=== PATIENT | male | born 1975 | race Two or more races ===

== ENCOUNTER 2020-04-02 22:42 | Emergency (ER) | payer MEDICARE, OTHER ==
[~2020-04-02] VITALS: Ht 172.7 cm; Wt 72.6 kg
[2020-04-02] MEDS ORDERED: QUET200T PO (22:55)
--- NOTE | 2020-04-02 23:00 | NUR ---
Dr. Rao at bedside for [facility].
[2020-04-02] MEDS ORDERED: SULFAMETH/TRIMETH 800/160 MG TABLET ONE (23:08)
[2020-04-02] MEDS ORDERED: SULFAMETH/TRIMETH 800/160 MG TABLET PO ONE (23:15)
--- NOTE | 2020-04-02 23:19 | NUR ---
Patient given written and verbal discharge instructions. Patient verbalizes understanding of instructions. Patient is ambulatory with steady gait. Refuses offer of [facility] placement. Patient given list of available shelters in surrounding area. Patient provided sandwich and juice per patient request, refused all other services available at this time. VSS, no acute signs of distress, all belongings taken.
[2020-04-02 23:22] VITALS: BP 135/82
== END 2020-04-02 23:22 | disposition home or self-care (01) ==
LOC: ER 22:51
DX: Z76.0 Encounter for issue of repeat prescription (principal); L03.012 Cellulitis of left finger; J45.909 Unspecified asthma, uncomplicated; G40.909 Epilepsy, unspecified, not intractable, without status epilepticus; Z59.0 Homelessness; F17.290 Nicotine dependence, other tobacco product, uncomplicated; F99 Mental disorder, not otherwise specified; F15.10 Other stimulant abuse, uncomplicated
CPT/HCPCS: A4663